=== PATIENT | male | born 2000 | race Caucasian/White ===

== ENCOUNTER 2024-08-13 14:06 | Emergency (ER) | payer OTHER ==
[~2024-08-13] VITALS: Ht 190.5 cm; Wt 80.3 kg
[2024-08-13] MEDS ORDERED: methylPREDNISolone SOD SUCC 125 MG/2 ML VIAL ONE (14:28)
[2024-08-13] MEDS ORDERED: FAMOTIDINE. 20 MG/2 ML VIAL IV ONE ×2 (14:28→14:29)
[2024-08-13] MEDS ORDERED: diphenhydrAMINE 50 MG/1 ML VIAL ONE (14:28)
[2024-08-13 14:30] LABS: BASOPHILS % (AUTO) 0.4 % (0.0-2.0); EOSINOPHILS # (AUTO) 0.1 K/uL (0.0-0.7); EOSINOPHILS % (AUTO) 1.4 % (0.0-7.0); HEMATOCRIT 47.6 % (36.7-47.1); HEMOGLOBIN 16.4 g/dL (12.5-16.3); MEAN CORPUSCULAR HEMOGLOBIN 30.1 uug (23.8-33.4); MEAN CORPUSCULAR HGB CONC 35 g/dL (32.5-36.3); MEAN CORPUSCULAR VOLUME 87.2 fL (73.0-96.2); MONOCYTES # (AUTO) 0.5 K/uL (0.1-1.30); MONOCYTES % (AUTO) 8.3 % (0.0-11.0); NEUTROPHILS # (AUTO) 3.5 K/uL (1.8-8.9); NEUTROPHILS % (AUTO) 56.9 % (38.5-71.5); PLATELET COUNT (AUTO) 210 K/uL (152-348); RED BLOOD CELL COUNT(AUTO) 5.45 MIL/uL (4.06-5.63); RED CELL DISTRIBUTION WIDTH 13.6 % (12.1-16.2); WHITE BLOOD COUNT (AUTO) 6.2 K/uL (3.6-10.2)
[2024-08-13 14:33] LABS: DIFFERENTIAL COMMENT 1
[2024-08-13] MEDS: FAMOTIDINE. 20 MG/2 ML VIAL IV ONE (14:34)
[2024-08-13] MEDS: methylPREDNISolone SOD SUCC 125 MG/2 ML VIAL IV ONE (14:34)
[2024-08-13] MEDS: diphenhydrAMINE 50 MG/1 ML VIAL IV ONE (14:34)
[2024-08-13 14:38] LABS: CALCIUM 9.9 mg/dL (8.5-10.1); CREATININE 0.9 mg/dL (0.6-1.3); POTASSIUM 3.5 mmol/L (3.5-5.1)
[2024-08-13] MEDS ORDERED: HYDR-501 PO (16:11)
[2024-08-13] MEDS ORDERED: PRED20TA PO (16:11)
[2024-08-13] MEDS ORDERED: EPIN0.3P3 IM (16:11)
[2024-08-13 16:33] VITALS: BP 107/68; O2SAT 98
== END 2024-08-13 16:33 | disposition home or self-care (01) ==
LOC: ER 14:31
DX: T78.1XXA Other adverse food reactions, not elsewhere classified, initial encounter (principal); Z79.52 Long term (current) use of systemic steroids; Z91.010 Allergy to peanuts; Z91.018 Allergy to other foods; X58.XXXA Exposure to other specified factors, initial encounter
CPT/HCPCS: 99284; 96374; 96375; 80048; 85025; 36415; J2919; J1200; A4606; A4663; J3490